=== PATIENT | female | born 1965 | race Caucasian/White ===

== ENCOUNTER 2017-06-10 14:38 | Emergency (ER) | payer MEDICAID ==
[~2017-06-10] VITALS: Ht 157.5 cm; Wt 61.2 kg
[2017-06-10 14:50] VITALS: BP_SYST 113
--- NOTE | 2017-06-10 14:58 | NUR ---
Placed in room 06 . Placed on satellite project site monitor, blood pressure machine and pulse oximeter. To gown for exam. Side rails up. Report given to Sascha RAPHAEL
--- NOTE | 2017-06-10 15:00 | NUR ---
LASHAWN BEAR at bedside examining patient.
--- NOTE | 2017-06-10 15:02 | NUR ---
Pt presents to ER c/o bilateral pain on lower and upper extremities that began approximately 2 weeks ago. Pt describes pain as burning and 10/10 pain. Pt denies N/V/D/CHEST PAIN/SOB/LOSS OF CONSCIOUSNESS. Pt denies significant medical history and denies use of medication at home. Pt in no acute respiratory distress, but in obvious pain. Pt is AOX4, NKDA.
[2017-06-10] MEDS ORDERED: KETOROLAC TROMETHAMINE 15 MG VIAL IVP ONE ×2 (15:15→16:00)
--- NOTE | 2017-06-10 15:20 | NUR ---
Pt medicated for pain level 10/10 w/ Toradol. Pt tolerated well will continue to monitor.
[2017-06-10 15:28] LABS: BASOPHILS # (AUTO) 0.2 K/uL (0.0-0.2); BASOPHILS % (AUTO) 4.1 % (0.0-2.0); EOSINOPHILS # (AUTO) 0.2 K/uL (0.0-0.4); EOSINOPHILS % (AUTO) 3.2 % (0.0-4.0); HEMATOCRIT 44.4 % (36-48); HEMOGLOBIN 14.4 g/dL (12.0-16.0); LYMPHOCYTES % (AUTO) 42.2 % (20.5-51.5); MEAN CORPUSCULAR HEMOGLOBIN 33 pg (27-31); MEAN CORPUSCULAR HGB CONC 33 % (32-36); MEAN CORPUSCULAR VOLUME 101 fL (79.0-98.0); MONOCYTES # (AUTO) 0.5 K/uL (0.0-1.0); MONOCYTES % (AUTO) 10.8 % (1.7-9.3); NEUTROPHILS # (AUTO) 1.9 K/uL (1.8-7.7); NEUTROPHILS % (AUTO) 39.7 % (40.0-70.0); PLATELET COUNT (AUTO) 354 K/uL (130-430); RED CELL DISTRIBUTION WIDTH 14.3 % (9.0-15.0); WHITE BLOOD COUNT (AUTO) 4.8 K/uL (4.8-10.8)
[2017-06-10 15:39] LABS: CALCIUM 8.7 mg/dL (8.4-11.0); CREATININE 0.75 mg/dL (0.55-1.30); POTASSIUM 3.7 mmol/L (3.5-5.1)
[2017-06-10 15:54] LABS: ALBUMIN 2.9 g/dL (3.4-4.8); THYROID STIMULATING HORMONE 1.88 uIu/mL (0.36-3.74); TOTAL BILIRUBIN 0.7 mg/dL (0.0-1.0)
[2017-06-10] MEDS ORDERED: DIPHENHYDRAMINE INJ 50 MG/ML VIAL IVP ONE (16:00)
--- NOTE | 2017-06-10 16:00 | NUR ---
Pt pain level has not resolved. Pt states that pain level is 9/10 in comparison to the previous 10/10 she reported. Pt is also sating at high 80's to low 90's. Blair BEAR informed and aware of situation. Pt to be monitored closely as per Blair BEAR.
--- NOTE | 2017-06-10 16:00 | NUR ---
Blair BEAR at bedside reassessing pt.
--- NOTE | 2017-06-10 16:12 | NUR ---
Pt medicated w/ Benadryl and another dose of Toradol. Pt tolerating well but pt still states pain level has not come down. Dr. Pinto informed, will continue to monitor.
--- NOTE | 2017-06-10 16:25 | NUR ---
IVF administered to pt. Pt tolerating well. Will continue to monitor.
[2017-06-10 16:27] LABS: ERYTHROCYTE SEDIMENTATION RATE 9 MM/HR (0-20)
[2017-06-10] MEDS ORDERED: NACL 0.9% 1,000 ML IV ONE (16:30)
[2017-06-10 17:20] VITALS: BP_SYST 128
--- NOTE | 2017-06-10 17:20 | NUR ---
Patient given written and verbal discharge instructions and verbalizes understanding. ER MD discussed with patient the results and treatment provided. Patient in stable condition. ID arm band removed. IV catheter removed intact and dressing applied, no active bleeding. Rx of Tramadol and Naproxed given. Patient educated on pain management and to follow up with PMD. Pain Scale 3. MD aware, pain medications were given here and prescription home. Opportunity for questions provided and answered.
== END 2017-06-10 17:20 | disposition home or self-care (01) ==
LOC: SED 14:38
DX: M25.50 Pain in unspecified joint (principal)
CPT/HCPCS: 36415; 80053; 82550; 84439; 84443; 85025; 85651; 96361; 96374; 96375; 96376; 99284; G0482; J1200; J1885; J7030